=== PATIENT | female | born 1945 | race Caucasian/White ===

== ENCOUNTER 2017-12-11 08:00 | Emergency (ER) | payer MEDICARE, OTHER ==
[~2017-12-11] VITALS: Ht 162.6 cm; Wt 85.0 kg
[~2017-12-11 08:00] MED LIST: ACCUPRIL5 MG PO; ALAVERT10 MG OR; ALBUTEROL2.5 MG/31 INH; ALENDRONATE70 MG PO; ARIMIDEX1 MG PO; ATIVAN1 M1 OR; ATIVAN1 M1 PO; ATIVAN1 MG OR; ATIVAN1 MG PO; AUGMENTIN875TAB PO; CATAFLAM50 MG OR; CELEXA20 MG PO; CIPRO500 MG PO; CIPROFLOXACN500 MG PO; CYMBALTA20 MG; CYMBALTA20 MG PO; CYMBALTA60 MG PO; FLEXERIL10 MG PO; FLEXERIL5 M1 PO; FLUTICASONE50 MCG NAB; GABAPENTIN800 MG PO; LEVAQUIN500 MG PO; LEVOTHYROXIN50 MCG PO; LORAZEPAM1 MG OR; LORAZEPAM1 MG PO; LORTAB 1010 MG PO; LORTAB 5 PO; LORTAB 7.5 PO; LORTAB5 PO; MEDDOSEPAK PO; MELOXICAM15 MG PO; MICROZIDE OR; NAPROSYN500 MG OR; NAPROSYN500 MG PO; OMEPRAZOLE20 MG OR; OMEPRAZOLE20 MG PO; OMEPRAZOLE40 MG PO; PRILOSEC20 MG PO; TRIAMCINOLON0.025 % EX; VERAPAMIL HCL120 MG PO; VERAPAMIL120 M2 PO; VERAPAMIL120 MG PO; VERAPAMIL240 MG OR; ZITHROMAX500 MG PO; ZPAK PO
[2017-12-11] MEDS ORDERED: CORTISPORIN OTI10 M2 AU (08:28)
[2017-12-11] MEDS ORDERED: ZITHROMAX250 MG PO (08:28)
[2017-12-11 08:31] VITALS: BP 171/81
== END 2017-12-11 08:32 | disposition home or self-care (01) ==
LOC: ED 08:00
DX: J32.9 Chronic sinusitis, unspecified (principal); H60.92 Unspecified otitis externa, left ear; I10 Essential (primary) hypertension; F41.9 Anxiety disorder, unspecified; E78.5 Hyperlipidemia, unspecified; E03.9 Hypothyroidism, unspecified

== ENCOUNTER → 2018-06-07 | Outpatient (REF) | payer MEDICARE, OTHER ==
[~2018-06-07] MED LIST changes: +CORTISPORIN OTI10 M2 AU; +ZITHROMAX250 MG PO
== END | disposition home or self-care (01) ==
LOC: DI 08:59
DX: J20.9 Acute bronchitis, unspecified (principal)

== ENCOUNTER 2018-08-22 09:31 | Inpatient (IN) | payer MEDICARE, OTHER ==
[~2018-08-22] VITALS: Ht 165.1 cm; Wt 68.0 kg
[2018-08-22 10:07] LABS: URINE BILIRUBIN - DIPSTICK NEGATIVE (NEGATIVE); URINE BLOOD DIPSTICK SMALL (NEGATIVE); URINE COLOR YELLOW; URINE GLUCOSE - DIPSTICK NEGATIVE (NEGATIVE); URINE KETONE NEGATIVE (NEGATIVE); URINE LEUK ESTERASE NEGATIVE (NEGATIVE); URINE NITRITE - DIPSTICK NEGATIVE (Negative); URINE PROTEIN - DIPSTICK NEGATIVE (NEG-TRACE); URINE SPECIFIC GRAVITY 1.025; URINE UROBILINOGEN - DIPSTICK 0.2 E.U./dL (0.2)
[2018-08-22 10:08] LABS: URINE EPITHELIAL CELLS RARE EPI/hpf (0-FEW); URINE RBC 0-2 RBC/hpf (0-5)
[2018-08-22 10:38] LABS: HEMOGLOBIN 12.8 g/dl (12.0-16.0); IMMATURE GRANULOCYTES 0.3 % (0.0-5.0); MEAN CELL VOLUME 88.3 fL CALC (80.0-100.0); MEAN CORPUSCULAR HGB 30.5 pG CALC (26.0-32.0); MEAN CORPUSCULAR HGB CONC 34.6 g/L CALC (32.0-36.0); NEUT# 3.29 thou/uL (2.00-7.15); RED BLOOD COUNT 4.19 mill/uL (4.20-5.60); RED CELL DISTRI WIDTH 12.5 % (11.5-15.5)
[2018-08-22 11:11] LABS: ALBUMIN 4.2 g/dL (3.2-5.0); ALKALINE PHOSPHATASE 72 u/l (38-126); BILIRUBIN, TOTAL 1.3 mg/dL (0.0-1.4); BUN 16 mg/dL (8-23); BUN/CREATININE RATIO 20 (12-20 (CALC)); CARBON DIOXIDE 25 mmol/l (22-30); CREATININE 0.8 mg/dL (0.5-1.0); GFR > 60 ML/MIN (>=60 (CALC)); GFR FOR AFR.AMER. > 60 ML/MIN (>=60 (CALC)); LIPASE 203 u/l (23-300); POTASSIUM 3.6 mmol/l (3.5-5.1); TOTAL PROTEIN 7.7 g/dL (6.3-8.2)
[2018-08-22 11:12] LABS: CHLORIDE 84 mmol/l (95-108)
[2018-08-22 11:16] LABS: ANION GAP 18 (6-22 (CALC)); SGOT/AST 40 u/l (9-36); SODIUM 123 mmol/l (137-146)
[2018-08-22 11:45] VITALS: BP 127/51
[2018-08-22] MEDS ORDERED: ANASTROZOLE1 MG PO (13:38)
[2018-08-22] MEDS ORDERED: SPIRONO/HCTZ PO (13:39)
[2018-08-22] MEDS ORDERED: POTASSIUM99 MG PO (13:40)
[2018-08-22] MEDS ORDERED: ZANAFLEX2 MG PO (13:40)
[2018-08-22] MEDS ORDERED: LEVOTHYROXIN50 MCG PO (13:40)
[2018-08-22] MEDS ORDERED: LISINOPRIL20 M1 PO (13:42)
[2018-08-22] MEDS ORDERED: SYMBICORT1 AE1 IN (13:42)
[2018-08-22] MEDS ORDERED: NEURONTIN800 MG PO (13:43)
[2018-08-22] MEDS ORDERED: TENORMIN25 M1 PO (13:43)
[2018-08-22] MEDS ORDERED: ATIVAN1 M1 PO (13:44)
[2018-08-22 15:20] LABS: ANION GAP 14 (6-22 (CALC)); BUN 13 mg/dL (8-23); BUN/CREATININE RATIO 18 (12-20 (CALC)); CARBON DIOXIDE 28 mmol/l (22-30); CHLORIDE 87 mmol/l (95-108); CREATININE 0.7 mg/dL (0.5-1.0); GFR > 60 ML/MIN (>=60 (CALC)); GFR FOR AFR.AMER. > 60 ML/MIN (>=60 (CALC)); POTASSIUM 3.3 mmol/l (3.5-5.1); SODIUM 125 mmol/l (137-146)
[2018-08-22 16:09] VITALS: BP 112/72
[2018-08-22 19:08] VITALS: BP 93/66
[2018-08-23 00:09] VITALS: BP 103/67
[2018-08-23 04:13] VITALS: BP 108/74
[2018-08-23 06:06] LABS: HEMATOCRIT 33.3 % (37.0-47.0); HEMOGLOBIN 11.4 g/dl (12.0-16.0); IMMATURE GRANULOCYTES 0.2 % (0.0-5.0); MEAN CORPUSCULAR HGB 30.8 pG CALC (26.0-32.0); MEAN CORPUSCULAR HGB CONC 34.2 g/L CALC (32.0-36.0); NEUT# 1.97 thou/uL (2.00-7.15); RED BLOOD COUNT 3.7 mill/uL (4.20-5.60); RED CELL DISTRI WIDTH 12.6 % (11.5-15.5)
[2018-08-23 06:31] LABS: ALBUMIN 3.5 g/dL (3.2-5.0); ALKALINE PHOSPHATASE 65 u/l (38-126); BILIRUBIN, TOTAL 1.1 mg/dL (0.0-1.4); BUN 12 mg/dL (8-23); BUN/CREATININE RATIO 14 (12-20 (CALC)); CARBON DIOXIDE 28 mmol/l (22-30); CHLORIDE 91 mmol/l (95-108); CREATININE 0.8 mg/dL (0.5-1.0); GFR > 60 ML/MIN (>=60 (CALC)); GFR FOR AFR.AMER. > 60 ML/MIN (>=60 (CALC)); MAGNESIUM 1.6 mg/dL (1.6-2.3); SGOT/AST 21 u/l (9-36); SODIUM 129 mmol/l (137-146); TOTAL PROTEIN 6.5 g/dL (6.3-8.2)
[2018-08-23 07:00] LABS: ANION GAP 15 (6-22 (CALC)); POTASSIUM 4.5 mmol/l (3.5-5.1)
[2018-08-23 08:00] VITALS: BP 126/68
[2018-08-23 12:52] VITALS: BP 109/74
[2018-08-23 15:39] VITALS: BP 129/73
[2018-08-23 19:19] VITALS: BP 108/65
[2018-08-24 02:58] VITALS: BP 113/73
[2018-08-24 05:48] LABS: HEMATOCRIT 35.2 % (37.0-47.0); HEMOGLOBIN 11.9 g/dl (12.0-16.0); IMMATURE GRANULOCYTES 0.2 % (0.0-5.0); MEAN CELL VOLUME 90.5 fL CALC (80.0-100.0); MEAN CORPUSCULAR HGB 30.6 pG CALC (26.0-32.0); MEAN CORPUSCULAR HGB CONC 33.8 g/L CALC (32.0-36.0); NEUT# 1.9 thou/uL (2.00-7.15); RED BLOOD COUNT 3.89 mill/uL (4.20-5.60); RED CELL DISTRI WIDTH 12.5 % (11.5-15.5)
[2018-08-24 06:04] LABS: ALBUMIN 3.7 g/dL (3.2-5.0); ALKALINE PHOSPHATASE 62 u/l (38-126); ANION GAP 14 (6-22 (CALC)); BILIRUBIN, TOTAL 0.8 mg/dL (0.0-1.4); BUN 16 mg/dL (8-23); BUN/CREATININE RATIO 22 (12-20 (CALC)); CARBON DIOXIDE 28 mmol/l (22-30); CHLORIDE 94 mmol/l (95-108); CREATININE 0.7 mg/dL (0.5-1.0); GFR > 60 ML/MIN (>=60 (CALC)); GFR FOR AFR.AMER. > 60 ML/MIN (>=60 (CALC)); MAGNESIUM 1.7 mg/dL (1.6-2.3); POTASSIUM 4.3 mmol/l (3.5-5.1); SGOT/AST 20 u/l (9-36); SODIUM 131 mmol/l (137-146); TOTAL PROTEIN 6.7 g/dL (6.3-8.2)
[2018-08-24 08:00] VITALS: BP 133/69
[2018-08-24 11:26] VITALS: BP 157/92
[2018-08-24 15:51] VITALS: BP 141/94
[2018-08-24 19:47] VITALS: BP 119/78
[2018-08-25 00:54] VITALS: BP 121/85
[2018-08-25 04:51] VITALS: BP 131/85
[2018-08-25 07:05] LABS: HEMATOCRIT 36.6 % (37.0-47.0); HEMOGLOBIN 12.5 g/dl (12.0-16.0); IMMATURE GRANULOCYTES 0.2 % (0.0-5.0); MEAN CORPUSCULAR HGB 31.1 pG CALC (26.0-32.0); MEAN CORPUSCULAR HGB CONC 34.2 g/L CALC (32.0-36.0); NEUT# 2.44 thou/uL (2.00-7.15); RED BLOOD COUNT 4.02 mill/uL (4.20-5.60); RED CELL DISTRI WIDTH 12.7 % (11.5-15.5)
[2018-08-25 07:25] LABS: ALKALINE PHOSPHATASE 64 u/l (38-126); ANION GAP 15 (6-22 (CALC)); BILIRUBIN, TOTAL 1.1 mg/dL (0.0-1.4); BUN 13 mg/dL (8-23); BUN/CREATININE RATIO 22 (12-20 (CALC)); CARBON DIOXIDE 29 mmol/l (22-30); CHLORIDE 92 mmol/l (95-108); CREATININE 0.6 mg/dL (0.5-1.0); GFR > 60 ML/MIN (>=60 (CALC)); GFR FOR AFR.AMER. > 60 ML/MIN (>=60 (CALC)); MAGNESIUM 1.6 mg/dL (1.6-2.3); POTASSIUM 4.7 mmol/l (3.5-5.1); SGOT/AST 23 u/l (9-36); SODIUM 131 mmol/l (137-146); TOTAL PROTEIN 7.1 g/dL (6.3-8.2)
[2018-08-25 08:20] VITALS: BP 110/71
[2018-08-25 11:30] VITALS: BP 114/70
[2018-08-25] MEDS ORDERED: SOD CHLORIDE1 G2 PO (13:10)
== END 2018-08-25 13:54 | disposition home or self-care (01) | DRG 645 ==
LOC: ED 09:31 → ED-I 11:37 → ED 11:57 → MS2 11:58
PROVIDERS: Family Medicine; ADMIT Internal Medicine Nephrology; ATTEND Internal Medicine Nephrology
DX: E22.2 Syndrome of inappropriate secretion of antidiuretic hormone (principal); I10 Essential (primary) hypertension; E03.9 Hypothyroidism, unspecified; E78.5 Hyperlipidemia, unspecified; F41.1 Generalized anxiety disorder; I95.9 Hypotension, unspecified; T50.2X5A Adverse effect of carbonic-anhydrase inhibitors, benzothiadiazides and other diuretics, initial encounter; T50.0X5A Adverse effect of mineralocorticoids and their antagonists, initial encounter; G62.9 Polyneuropathy, unspecified; C50.911 Malignant neoplasm of unspecified site of right female breast; Z79.811 Long term (current) use of aromatase inhibitors; Z90.11 Acquired absence of right breast and nipple
CPT/HCPCS: G0378; J1650; Q9967

== ENCOUNTER 2018-10-27 11:54 | Emergency (ER) | payer MEDICARE, OTHER ==
[~2018-10-27] VITALS: Ht 165.1 cm; Wt 70.0 kg
[~2018-10-27 11:54] MED LIST changes: +ANASTROZOLE1 MG PO; +LISINOPRIL20 M1 PO; +NEURONTIN800 MG PO; +POTASSIUM99 MG PO; +SOD CHLORIDE1 G2 PO; +SPIRONO/HCTZ PO; +SYMBICORT1 AE1 IN; +TENORMIN25 M1 PO; +ZANAFLEX2 MG PO
[2018-10-27] MEDS ORDERED: ZITHROMAX250 MG PO (12:42)
[2018-10-27] MEDS ORDERED: MEDDOSEPAK PO (12:42)
[2018-10-27 12:48] VITALS: BP 145/104
== END 2018-10-27 12:54 | disposition home or self-care (01) ==
LOC: ED 11:54
DX: J06.9 Acute upper respiratory infection, unspecified (principal); J44.9 Chronic obstructive pulmonary disease, unspecified; I10 Essential (primary) hypertension; F41.9 Anxiety disorder, unspecified; E03.9 Hypothyroidism, unspecified; E78.5 Hyperlipidemia, unspecified

== ENCOUNTER 2018-11-21 15:07 | Emergency (ER) | payer MEDICARE, OTHER ==
[~2018-11-21] VITALS: Ht 165.1 cm; Wt 68.0 kg
[2018-11-21] MEDS ORDERED: LISINOPRIL20 M1 PO (16:16)
[2018-11-21] MEDS ORDERED: AUGMENTIN875TAB PO (16:33)
[2018-11-21] MEDS ORDERED: MEDDOSEPAK PO (16:33)
[2018-11-21 16:40] VITALS: BP 149/87
== END 2018-11-21 16:40 | disposition home or self-care (01) ==
LOC: ED 15:07
DX: J32.9 Chronic sinusitis, unspecified (principal); R09.81 Nasal congestion; R50.9 Fever, unspecified

== ENCOUNTER 2019-07-13 10:20 | Emergency (ER) | payer MEDICARE, OTHER ==
[~2019-07-13] VITALS: Ht 165.1 cm; Wt 70.0 kg
[2019-07-13 10:47] LABS: HEMATOCRIT 39.6 % (37.0-47.0); IMMATURE GRANULOCYTES 0.4 % (0.0-5.0); MEAN CELL VOLUME 90.8 fL CALC (80.0-100.0); MEAN CORPUSCULAR HGB 29.8 pG CALC (26.0-32.0); MEAN CORPUSCULAR HGB CONC 32.8 g/L CALC (32.0-36.0); NEUT# 4.03 thou/uL (2.00-7.15); RED BLOOD COUNT 4.36 mill/uL (4.20-5.60); RED CELL DISTRI WIDTH 13.4 % (11.5-15.5)
[2019-07-13 11:03] LABS: ALBUMIN 4.3 g/dL (3.2-5.0); ALKALINE PHOSPHATASE 115 u/l (38-126); ANION GAP 13 (6-22 (CALC)); BUN 16 mg/dL (8-23); BUN/CREATININE RATIO 21 (12-20 (CALC)); CARBON DIOXIDE 29 mmol/l (22-30); CHLORIDE 103 mmol/l (95-108); CREATININE 0.7 mg/dL (0.5-1.0); GFR > 60 ML/MIN (>=60 (CALC)); GFR FOR AFR.AMER. > 60 ML/MIN (>=60 (CALC)); LIPASE 246 u/l (23-300); POTASSIUM 3.5 mmol/l (3.5-5.1); SGOT/AST 24 u/l (9-36); SODIUM 141 mmol/l (137-146); TOTAL PROTEIN 7.8 g/dL (6.3-8.2)
[2019-07-13] MEDS ORDERED: ZPAK PO (11:21)
[2019-07-13 12:21] VITALS: BP 143/74
== END 2019-07-13 12:34 | disposition home or self-care (01) ==
LOC: ED 10:20
PROVIDERS: Family Medicine
DX: J06.9 Acute upper respiratory infection, unspecified (principal); I10 Essential (primary) hypertension; J44.9 Chronic obstructive pulmonary disease, unspecified; E03.9 Hypothyroidism, unspecified

== ENCOUNTER 2019-10-15 | Emergency (ER) | payer MEDICARE, OTHER ==
[2019-10-15] MEDS ORDERED: ATENOLOL50 MG PO (11:04)
[2019-10-15] MEDS ORDERED: ATORVASTATIN CA10 MG PO (11:05)
[2019-10-15] MEDS ORDERED: LISINOPRIL40 MG PO (11:05)
== END 2019-10-15 12:30 | disposition home or self-care (01) ==
DX: M17.11 Unilateral primary osteoarthritis, right knee (principal); I10 Essential (primary) hypertension; J44.9 Chronic obstructive pulmonary disease, unspecified; E03.9 Hypothyroidism, unspecified
CPT/HCPCS: L1830

== ENCOUNTER 2019-10-27 | Emergency (ER) | payer MEDICARE, OTHER ==
[~2019-10-27] MED LIST changes: +ATENOLOL50 MG PO; +ATORVASTATIN CA10 MG PO; +LISINOPRIL40 MG PO
[2019-10-27 06:03] LABS: HEMATOCRIT 37.7 % (37.0-47.0); HEMOGLOBIN 12.3 g/dl (12.0-16.0); IMMATURE GRANULOCYTES 0.3 % (0.0-5.0); MEAN CELL VOLUME 90.2 fL CALC (80.0-100.0); MEAN CORPUSCULAR HGB 29.4 pG CALC (26.0-32.0); MEAN CORPUSCULAR HGB CONC 32.6 g/L CALC (32.0-36.0); NEUT# 3.93 thou/uL (2.00-7.15); RED BLOOD COUNT 4.18 mill/uL (4.20-5.60); RED CELL DISTRI WIDTH 13.5 % (11.5-15.5)
[2019-10-27 06:21] LABS: ALBUMIN 3.9 g/dL (3.2-5.0); ALKALINE PHOSPHATASE 116 u/l (38-126); ANION GAP 10 (6-22 (CALC)); BILIRUBIN, TOTAL 1.3 mg/dL (0.0-1.4); BUN 14 mg/dL (8-23); BUN/CREATININE RATIO 18 (12-20 (CALC)); CARBON DIOXIDE 30 mmol/l (22-30); CHLORIDE 100 mmol/l (95-108); CREATININE 0.8 mg/dL (0.5-1.0); GFR > 60 ML/MIN (>=60 (CALC)); GFR FOR AFR.AMER. > 60 ML/MIN (>=60 (CALC)); POTASSIUM 3.5 mmol/l (3.5-5.1); SGOT/AST 27 u/l (9-36); SODIUM 137 mmol/l (137-146); TOTAL PROTEIN 7.1 g/dL (6.3-8.2)
[2019-10-27] MEDS ORDERED: PREDNISONE50 MG PO (06:44)
== END 2019-10-27 06:58 | disposition home or self-care (01) ==
PROVIDERS: Family Medicine
DX: J44.1 Chronic obstructive pulmonary disease with (acute) exacerbation (principal)

== ENCOUNTER 2019-12-28 | Emergency (ER) | payer MEDICARE, OTHER ==
[~2019-12-28] MED LIST changes: +PREDNISONE50 MG PO
[2019-12-28 09:32] LABS: HEMOGLOBIN 13.2 g/dl (12.0-16.0); IMMATURE GRANULOCYTES 0.2 % (0.0-5.0); MEAN CELL VOLUME 90.9 fL CALC (80.0-100.0); MEAN CORPUSCULAR HGB 29.3 pG CALC (26.0-32.0); MEAN CORPUSCULAR HGB CONC 32.2 g/dL CAL (32.0-36.0); NEUT# 2.65 thou/uL (2.00-7.15); RED BLOOD COUNT 4.51 mill/uL (4.20-5.60); RED CELL DISTRI WIDTH 14.4 % (11.5-15.5)
[2019-12-28] MEDS ORDERED: ALBUTEROL SUL0.083 % IN ×2 (09:34→10:24)
[2019-12-28 09:49] LABS: ALBUMIN 4.3 g/dL (3.2-5.0); ALKALINE PHOSPHATASE 110 u/l (38-126); ANION GAP 15 (6-22 (CALC)); BUN 16 mg/dL (8-23); BUN/CREATININE RATIO 25 (12-20 (CALC)); CARBON DIOXIDE 25 mmol/l (22-30); CHLORIDE 104 mmol/l (95-108); CREATININE 0.6 mg/dL (0.5-1.0); GFR > 60 ML/MIN (>=60 (CALC)); GFR FOR AFR.AMER. > 60 ML/MIN (>=60 (CALC)); POTASSIUM 3.8 mmol/l (3.5-5.1); SODIUM 140 mmol/l (137-146)
[2019-12-28 09:51] LABS: SGOT/AST 55 u/l (9-36)
[2019-12-28] MEDS ORDERED: ZPAK PO (10:24)
[2019-12-28] MEDS ORDERED: MEDDOSEPAK PO ×2 (10:24)
[2019-12-28] MEDS ORDERED: TESSALON PER100 MG PO ×2 (10:24)
--- NOTE | 2019-12-31 08:30 | NUR ---
COVID nasal swab results called to patient with confirmation of name and date of . Encouraged continued safety measures as recommended by the CDC regarding COVID including social distancing and frequent handwashing. Patient states she is feeling much better.
== END 2019-12-28 10:25 | disposition home or self-care (01) ==
DX: J44.1 Chronic obstructive pulmonary disease with (acute) exacerbation (principal); I10 Essential (primary) hypertension; E03.9 Hypothyroidism, unspecified; Z77.22 Contact with and (suspected) exposure to environmental tobacco smoke (acute) (chronic); Z20.828 Contact with and (suspected) exposure to other viral communicable diseases

== ENCOUNTER 2020-03-03 16:07 | Emergency (ER) | payer MEDICARE, OTHER ==
[~2020-03-03] VITALS: Ht 165.1 cm; Wt 68.0 kg
[~2020-03-03 16:07] MED LIST changes: +ALBUTEROL SUL0.083 % IN; +TESSALON PER100 MG PO
[2020-03-03 17:22] VITALS: BP 138/90
== END 2020-03-03 17:24 | disposition home or self-care (01) ==
LOC: ED 16:07
DX: M25.571 Pain in right ankle and joints of right foot (principal); M19.071 Primary osteoarthritis, right ankle and foot; I10 Essential (primary) hypertension; J44.9 Chronic obstructive pulmonary disease, unspecified; X50.0XXA Overexertion from strenuous movement or load, initial encounter; Y92.009 Unspecified place in unspecified non-institutional (private) residence as the place of occurrence of the external cause

== ENCOUNTER 2020-08-16 15:32 | Emergency (ER) | payer MEDICARE, OTHER ==
[~2020-08-16] VITALS: Ht 165.1 cm; Wt 47.7 kg
[2020-08-16] MEDS ORDERED: Levaquin PO (16:13)
[2020-08-16] MEDS ORDERED: MEDDOSEPAK PO (16:13)
[2020-08-16 16:18] VITALS: BP 144/88
== END 2020-08-16 16:38 | disposition home or self-care (01) ==
LOC: ED 15:32
DX: J32.9 Chronic sinusitis, unspecified (principal); I10 Essential (primary) hypertension; J44.9 Chronic obstructive pulmonary disease, unspecified; E03.9 Hypothyroidism, unspecified; F41.9 Anxiety disorder, unspecified; E78.5 Hyperlipidemia, unspecified; G62.9 Polyneuropathy, unspecified

== ENCOUNTER 2021-01-24 17:59 | Emergency (ER) | payer MEDICARE, OTHER ==
[~2021-01-24] VITALS: Ht 165.1 cm; Wt 65.9 kg
[~2021-01-24 17:59] MED LIST changes: +Levaquin PO
[2021-01-24 18:34] LABS: URINE BILIRUBIN - DIPSTICK NEGATIVE (NEGATIVE); URINE BLOOD DIPSTICK TRACE-LYSED (NEGATIVE); URINE CLARITY CLEAR; URINE COLOR YELLOW; URINE GLUCOSE - DIPSTICK NEGATIVE (NEGATIVE); URINE KETONE NEGATIVE (NEGATIVE); URINE LEUK ESTERASE TRACE (Negative); URINE NITRITE - DIPSTICK NEGATIVE (Negative); URINE PROTEIN - DIPSTICK NEGATIVE (NEG-TRACE); URINE SPECIFIC GRAVITY 1.015; URINE UROBILINOGEN - DIPSTICK 0.2 E.U./dL (0.2)
[2021-01-24 18:50] LABS: HEMATOCRIT 37.8 % (37.0-47.0); HEMOGLOBIN 12.2 g/dl (12.0-16.0); IMMATURE GRANULOCYTES 0.2 % (0.0-5.0); MEAN CELL VOLUME 90.4 fL CALC (80.0-100.0); MEAN CORPUSCULAR HGB 29.2 pG CALC (26.0-32.0); MEAN CORPUSCULAR HGB CONC 32.3 g/dL CAL (32.0-36.0); NEUT# 2.38 thou/uL (2.00-7.15); RED BLOOD COUNT 4.18 mill/uL (4.20-5.60); RED CELL DISTRI WIDTH 13.8 % (11.5-15.5)
[2021-01-24 19:02] LABS: ALBUMIN 3.9 g/dL (3.2-5.0); ALKALINE PHOSPHATASE 90 u/l (38-126); ANION GAP 10 (6-22 (CALC)); BILIRUBIN, TOTAL 1.2 mg/dL (0.0-1.4); BUN 13 mg/dL (8-23); BUN/CREATININE RATIO 17 (12-20 (CALC)); CARBON DIOXIDE 28 mmol/l (22-30); CHLORIDE 101 mmol/l (95-108); CREATININE 0.8 mg/dL (0.5-1.0); GFR > 60 ML/MIN (>=60 (CALC)); GFR FOR AFR.AMER. > 60 ML/MIN (>=60 (CALC)); LIPASE 193 u/l (23-300); POTASSIUM 3.6 mmol/l (3.5-5.1); SGOT/AST 27 u/l (9-36); SODIUM 135 mmol/l (137-146); TOTAL PROTEIN 7.1 g/dL (6.3-8.2)
[2021-01-24] MEDS ORDERED: KEFLEX500 MG PO (20:14)
[2021-01-24 20:41] VITALS: BP 158/72
== END 2021-01-24 20:25 | disposition home or self-care (01) ==
LOC: ED 17:59
DX: N39.0 Urinary tract infection, site not specified (principal); I10 Essential (primary) hypertension; J44.9 Chronic obstructive pulmonary disease, unspecified; E03.9 Hypothyroidism, unspecified; F41.9 Anxiety disorder, unspecified; E78.5 Hyperlipidemia, unspecified; G62.9 Polyneuropathy, unspecified; I20.9 Angina pectoris, unspecified

== ENCOUNTER 2021-01-27 02:25 | Emergency (ER) | payer MEDICARE, OTHER ==
[~2021-01-27] VITALS: Ht 165.1 cm; Wt 63.0 kg
[~2021-01-27 02:25] MED LIST changes: +KEFLEX500 MG PO
[2021-01-27 04:32] LABS: ALBUMIN 3.6 g/dL (3.2-5.0); ALKALINE PHOSPHATASE 77 u/l (38-126); ANION GAP 8 (6-22 (CALC)); BUN 8 mg/dL (8-23); BUN/CREATININE RATIO 12 (12-20 (CALC)); CARBON DIOXIDE 28 mmol/l (22-30); CHLORIDE 100 mmol/l (95-108); CREATININE 0.7 mg/dL (0.5-1.0); GFR > 60 ML/MIN (>=60 (CALC)); GFR FOR AFR.AMER. > 60 ML/MIN (>=60 (CALC)); LIPASE 134 u/l (23-300); POTASSIUM 3.3 mmol/l (3.5-5.1); SGOT/AST 28 u/l (9-36); SODIUM 133 mmol/l (137-146); TOTAL PROTEIN 6.6 g/dL (6.3-8.2)
[2021-01-27 05:16] LABS: HEMATOCRIT 38.6 % (37.0-47.0); HEMOGLOBIN 12.6 g/dl (12.0-16.0); IMMATURE GRANULOCYTES 0.2 % (0.0-5.0); MEAN CELL VOLUME 90.2 fL CALC (80.0-100.0); MEAN CORPUSCULAR HGB 29.4 pG CALC (26.0-32.0); MEAN CORPUSCULAR HGB CONC 32.6 g/dL CAL (32.0-36.0); NEUT# 2.02 thou/uL (2.00-7.15); RED BLOOD COUNT 4.28 mill/uL (4.20-5.60); RED CELL DISTRI WIDTH 13.7 % (11.5-15.5)
[2021-01-27 05:30] LABS: ETHYL ALCOHOL 0 mg/dl (0-30)
[2021-01-27 06:11] LABS: URINE BILIRUBIN - DIPSTICK NEGATIVE (NEGATIVE); URINE BLOOD DIPSTICK TRACE-LYSED (NEGATIVE); URINE COLOR YELLOW; URINE GLUCOSE - DIPSTICK NEGATIVE (NEGATIVE); URINE KETONE NEGATIVE (NEGATIVE); URINE PH 6.5 (4.5-8.0); URINE UROBILINOGEN - DIPSTICK 0.2 E.U./dL (0.2)
[2021-01-27 06:13] LABS: URINE LEUK ESTERASE SMALL (NEGATIVE); URINE NITRITE - DIPSTICK POSITIVE (Negative)
[2021-01-27 06:15] LABS: URINE PROTEIN - DIPSTICK NEGATIVE (NEG-TRACE)
[2021-01-27 06:19] LABS: URINE BACTERIA MODERATE hpf; URINE EPITHELIAL CELLS FEW EPI/hpf (0-FEW)
[2021-01-27] MEDS ORDERED: ZOFRAN4 MG/TAB PO (06:26)
[2021-01-27] MEDS ORDERED: CIPROFLOXACN500 MG PO (06:26)
[2021-01-27] MEDS ORDERED: TORADOL PO (06:26)
[2021-01-27 06:39] VITALS: BP 154/85
== END 2021-01-27 07:18 | disposition home or self-care (01) ==
LOC: ED 02:25
DX: N39.0 Urinary tract infection, site not specified (principal); M54.5 Low back pain; I10 Essential (primary) hypertension; J44.9 Chronic obstructive pulmonary disease, unspecified; F41.9 Anxiety disorder, unspecified; E03.9 Hypothyroidism, unspecified; E78.5 Hyperlipidemia, unspecified; G62.9 Polyneuropathy, unspecified; I20.9 Angina pectoris, unspecified; Z20.822 Contact with and (suspected) exposure to COVID-19

== ENCOUNTER 2021-08-21 03:54 | Emergency (ER) | payer MEDICARE, OTHER ==
[~2021-08-21] VITALS: Ht 165.1 cm; Wt 68.0 kg
[~2021-08-21 03:54] MED LIST changes: +TORADOL PO; +ZOFRAN4 MG/TAB PO
[2021-08-21] MEDS ORDERED: FLONASE AL50 MCG/ACT (05:06)
[2021-08-21] MEDS ORDERED: KEFLEX500 MG PO (05:06)
[2021-08-21 05:09] VITALS: BP 113/65
== END 2021-08-21 05:29 | disposition home or self-care (01) ==
LOC: ED 03:54
DX: J32.9 Chronic sinusitis, unspecified (principal); I10 Essential (primary) hypertension; J44.9 Chronic obstructive pulmonary disease, unspecified; F41.9 Anxiety disorder, unspecified; E03.9 Hypothyroidism, unspecified; E78.5 Hyperlipidemia, unspecified; Z20.822 Contact with and (suspected) exposure to COVID-19

== ENCOUNTER 2021-11-23 05:43 | Inpatient (IN) | payer MEDICARE, OTHER ==
[~2021-11-23] VITALS: Ht 165.1 cm; Wt 64.8 kg
[2021-11-23] VITALS (8 sets, daily range): BP systolic 119–169; BP diastolic 55–101
[~2021-11-23 05:43] MED LIST changes: +FLONASE AL50 MCG/ACT; +TRAZODONE50 MG PO; +VENLAFAXINE37.5 MG PO; +ZESTRIL40 MG PO; +ZOCOR10 MG PO
--- NOTE | 2021-11-23 16:00 | NUR ---
PT RESTING COMFORTABLY IN BED, NO S/S OF DISCOMFORT
--- NOTE | 2021-11-23 19:07 | NUR ---
REPORT RECEIVED FROM Bailee MOSQUERA RN
[2021-11-24 04:38] VITALS: BP 96/42
--- NOTE | 2021-11-24 04:53 | NUR ---
pt provided with pain medication for pain 12/06.
[2021-11-24 05:30] LABS: HEMATOCRIT 41.4 % (37.0-47.0); HEMOGLOBIN 12.6 g/dl (12.0-16.0)
--- NOTE | 2021-11-24 06:24 | NUR ---
PATIENT RESTING COMOFORTABLY, DENIES ANY CURRENT PAIN AT THIS TIME. CALL LIGHT AND BEDSIDE TABLE WITHIN REACH.
--- NOTE | 2021-11-24 07:27 | NUR ---
RECD REPORT FROM NIGHT NURSE, PT RESTING COMFORTABLY IN BED, NO COMPLAING OF DISCOMFORT OR DISTRESS. ASKED FOR COFFEE
[2021-11-24 07:41] VITALS: BP 96/57
--- NOTE | 2021-11-24 12:00 | NUR ---
PT RESTING IN BED TALKING ON PHONE, NO COMPLAINTS OF PAIN AT THIS TIME
--- NOTE | 2021-11-24 12:18 | NUR ---
Pt seen this for treatment. She was resting in bed. AROM ex performed to BLE in supine including heel slides, hip abd/add, TKE, isometric quad and gluts, sitting LAQ, ankle DF/PF 2 x10 reps with 5 sec hold for isometrics. Knee AROM -10 to 85 degrees. Bed mobility with verbal cues and no use of bed rail, modified indep. supine to sit with supervision. Tranfer to chair with CGA. Gait with RW 2 x 30' with CGA and verbal cue for proper gait pattern. BP 118/62, HR 76, 02sats 95%. Pt was left in chair with call ng/phone and tray in reach. A- Pt able to move with less assist today and increase knee flexion. [facility] 13 home with home health P- Will continue to follow per POC.
== END 2021-11-24 13:58 | disposition home health service (06) | DRG 470 ==
LOC: ORM 05:43 → MS2 11:04
PROVIDERS: ADMIT Orthopaedic Surgery; ATTEND Orthopaedic Surgery
PROC: 0SRC0J9 Replacement of Right Knee Joint with Synthetic Substitute, Cemented, Open Approach (ICD-10-PCS; principal; 2021-11-23)
PROC: 3E0T3BZ Introduction of Anesthetic Agent into Peripheral Nerves and Plexi, Percutaneous Approach (ICD-10-PCS; 2021-11-23)
DX: M17.11 Unilateral primary osteoarthritis, right knee (principal); I10 Essential (primary) hypertension; J44.9 Chronic obstructive pulmonary disease, unspecified; E03.9 Hypothyroidism, unspecified; F41.9 Anxiety disorder, unspecified; F32.A Depression, unspecified; Z85.3 Personal history of malignant neoplasm of breast; Z90.11 Acquired absence of right breast and nipple; Z01.818 Encounter for other preprocedural examination; Z11.59 Encounter for screening for other viral diseases; F41.1 Generalized anxiety disorder; E78.00 Pure hypercholesterolemia, unspecified; Z98.890 Other specified postprocedural states
CPT/HCPCS: J0131

== ENCOUNTER 2022-01-10 10:24 | Emergency (ER) | payer MEDICARE, OTHER ==
[~2022-01-10] VITALS: Ht 165.1 cm; Wt 65.9 kg
[2022-01-10 11:32] VITALS: BP 166/107
[2022-01-10 11:52] VITALS: BP 160/94
[2022-01-10 12:00] VITALS: BP 158/88
[2022-01-10 12:30] VITALS: BP 158/91
[2022-01-10 13:00] VITALS: BP 168/86
[2022-01-10] MEDS ORDERED: IBUPROFEN600 MG PO (13:03)
[2022-01-10 13:08] VITALS: BP 168/86
== END 2022-01-10 13:20 | disposition home or self-care (01) ==
LOC: ED 10:24
DX: M25.561 Pain in right knee (principal); I10 Essential (primary) hypertension; F32.A Depression, unspecified; F41.9 Anxiety disorder, unspecified; Z96.651 Presence of right artificial knee joint

== ENCOUNTER 2022-01-18 06:04 | Day surgery (SDC) | payer MEDICARE, OTHER ==
[~2022-01-18] VITALS: Ht 165.1 cm; Wt 62.6 kg
[~2022-01-18 06:04] MED LIST changes: +IBUPROFEN600 MG PO
[2022-01-18 08:49] VITALS: BP 150/88
== END 2022-01-18 08:41 | disposition home or self-care (01) ==
LOC: ORM 06:04
PROVIDERS: ATTEND Orthopaedic Surgery
PROC: 0SNCXZZ Release Right Knee Joint, External Approach (ICD-10-PCS; principal; 2022-01-18)
DX: T84.82XA Fibrosis due to internal orthopedic prosthetic devices, implants and grafts, initial encounter (principal); Y83.1 Surgical operation with implant of artificial internal device as the cause of abnormal reaction of the patient, or of later complication, without mention of misadventure at the time of the procedure; Z96.651 Presence of right artificial knee joint

== ENCOUNTER 2024-08-13 08:33 | Emergency (ER) | payer MEDICARE ==
[2024-08-13] VITALS (13 sets, daily range): BP systolic 145–194; BP diastolic 88–114
[~2024-08-13] VITALS: Ht 165.1 cm; Wt 67.2 kg
[~2024-08-13 08:33] MED LIST changes: +IPRATROPIU0.5 MG/3 M IN; +K-TAB20 MEQ PO
[2024-08-13 09:18] LABS: BASO% 1.2 % (0-3); HEMOGLOBIN 13.9 g/dl (12.0-16.0); IMMATURE GRANULOCYTES 0.2 % (0.0-5.0); LYMPH% 46.4 % (15-41); MEAN CELL VOLUME 95.7 fL CALC (80.0-100.0); MEAN CORPUSCULAR HGB 29.7 pG CALC (26.0-32.0); MONO% 6.4 % (2-13); NEUT# 2.29 thou/uL (2.00-7.15); NEUT% 40.8 % (42-76); RED BLOOD COUNT 4.68 mill/uL (4.20-5.60)
[2024-08-13 09:20] LABS: HEMATOCRIT 44.8 % (37.0-47.0)
[2024-08-13 09:27] LABS: ALBUMIN 4.4 g/dL (3.2-5.0); ALKALINE PHOSPHATASE 104 u/l (38-126); ANION GAP 11 (6-22 (CALC)); BUN 13 mg/dL (8-23); BUN/CREATININE RATIO 17 (12-20 (CALC)); CARBON DIOXIDE 30 mmol/l (22-30); CHLORIDE 101 mmol/l (95-108); CREATININE 0.8 mg/dL (0.5-1.0); ESTIMATED GFR 76 ML/MIN (>=90 (CALC)); POTASSIUM 3.3 mmol/l (3.5-5.1); SGOT/AST 32 u/l (9-36); SODIUM 139 mmol/l (137-146)
[2024-08-13 09:42] LABS: BILIRUBIN, TOTAL 0.9 mg/dL (0.02-1.3)
[2024-08-13] MEDS ORDERED: LIPITOR40 M1 PO (12:22)
[2024-08-13] MEDS ORDERED: HYDROCHLOROT12.5 M1 PO (12:30)
== END 2024-08-13 12:54 | disposition home or self-care (01) ==
LOC: ED 08:33
PROVIDERS: Family Medicine
DX: G45.9 Transient cerebral ischemic attack, unspecified (principal); I10 Essential (primary) hypertension; F32.A Depression, unspecified; F41.9 Anxiety disorder, unspecified
CPT/HCPCS: Q9967

== ENCOUNTER 2024-09-10 14:48 | Emergency (ER) | payer MEDICARE ==
[~2024-09-10] VITALS: Ht 165.1 cm; Wt 66.8 kg
[~2024-09-10 14:48] MED LIST changes: +HYDROCHLOROT12.5 M1 PO; +LIPITOR40 M1 PO
[2024-09-10 14:56] VITALS: BP 129/77
== END 2024-09-10 19:28 | disposition left against medical advice (07) ==
LOC: ED 14:48 → LWOBS 19:28
DX: Z53.21 Procedure and treatment not carried out due to patient leaving prior to being seen by health care provider (principal)

== ENCOUNTER 2024-09-20 16:00 | Emergency (ER) | payer MEDICARE ==
[2024-09-20] VITALS (9 sets, daily range): BP systolic 140–170; BP diastolic 84–108
[~2024-09-20] VITALS: Ht 165.1 cm; Wt 62.0 kg
[2024-09-20 17:10] LABS: BASO% 0.9 % (0-3); EOS% 5.3 % (0-8); HEMATOCRIT 38.3 % (37.0-47.0); HEMOGLOBIN 12.4 g/dl (12.0-16.0); IMMATURE GRANULOCYTES 0.1 % (0.0-5.0); LYMPH% 46.8 % (15-41); MEAN CORPUSCULAR HGB 30.5 pG CALC (26.0-32.0); MEAN CORPUSCULAR HGB CONC 32.4 g/dL CAL (32.0-36.0); MONO% 8.5 % (2-13); NEUT# 2.6 thou/uL (2.00-7.15); NEUT% 38.4 % (42-76); RED BLOOD COUNT 4.07 mill/uL (4.20-5.60); RED CELL DISTRI WIDTH 13.4 % (11.5-15.5)
[2024-09-20 17:12] LABS: MEAN CELL VOLUME 94.1 fL CALC (80.0-100.0)
[2024-09-20 17:22] LABS: ALBUMIN 4.1 g/dL (3.2-5.0); ALKALINE PHOSPHATASE 102 u/l (38-126); ANION GAP 11 (6-22 (CALC)); BUN 11 mg/dL (8-23); BUN/CREATININE RATIO 16 (12-20 (CALC)); CARBON DIOXIDE 32 mmol/l (22-30); CHLORIDE 97 mmol/l (95-108); CREATININE 0.7 mg/dL (0.5-1.0); ESTIMATED GFR 89 ML/MIN (>=90 (CALC)); POTASSIUM 3.4 mmol/l (3.5-5.1); SGOT/AST 38 u/l (9-36); TOTAL PROTEIN 7.5 g/dL (6.3-8.2)
[2024-09-20 17:24] LABS: SODIUM 137 mmol/l (137-146)
[2024-09-20] MEDS ORDERED: cloNIDine HCL 0.1 MG/TAB PO ONE (17:55)
[2024-09-20] MEDS ORDERED: methylPREDNISolone SODIUM SUCC 125 MG/2 ML SDV IV ONE (18:00)
[2024-09-20] MEDS ORDERED: DOXYCYCLINE HYCLATE 100 MG/CAP PO ONE (18:30)
[2024-09-20 18:39] LABS: URINE BILIRUBIN - DIPSTICK Negative (NEGATIVE); URINE BLOOD DIPSTICK Trace-intact (NEGATIVE); URINE COLOR Yellow; URINE GLUCOSE - DIPSTICK Negative (NEGATIVE); URINE KETONE Negative (NEGATIVE); URINE LEUK ESTERASE Negative (NEGATIVE); URINE NITRITE - DIPSTICK Negative (Negative); URINE PROTEIN - DIPSTICK Negative (NEG-TRACE); URINE SPECIFIC GRAVITY 1.015; URINE UROBILINOGEN - DIPSTICK 0.2 E.U./dL (0.2)
[2024-09-20] MEDS ORDERED: PREDNISONE20 MG PO (18:47)
[2024-09-20] MEDS ORDERED: VIBRAMYCIN100 M2 PO (18:47)
[2024-09-20] MEDS ORDERED: CLONIDINE0.1 MG PO (18:47)
== END 2024-09-20 19:18 | disposition home or self-care (01) ==
LOC: ED 16:00
PROVIDERS: Nurse Practitioner
DX: I10 Essential (primary) hypertension (principal); J44.1 Chronic obstructive pulmonary disease with (acute) exacerbation; J18.9 Pneumonia, unspecified organism; J44.0 Chronic obstructive pulmonary disease with (acute) lower respiratory infection; Z20.822 Contact with and (suspected) exposure to COVID-19

== ENCOUNTER 2024-09-28 13:23 | Emergency (ER) | payer MEDICARE ==
[~2024-09-28] VITALS: Ht 165.1 cm; Wt 63.6 kg
[2024-09-28] VITALS (8 sets, daily range): BP systolic 114–138; BP diastolic 62–84
[~2024-09-28 13:23] MED LIST changes: +CLONIDINE0.1 MG PO; +PREDNISONE20 MG PO; +VIBRAMYCIN100 M2 PO
[2024-09-28 14:24] LABS: BASO% 0.5 % (0-3); EOS% 2.2 % (0-8); HEMATOCRIT 41.1 % (37.0-47.0); HEMOGLOBIN 13.6 g/dl (12.0-16.0); IMMATURE GRANULOCYTES 0.7 % (0.0-5.0); LYMPH% 37.6 % (15-41); MEAN CELL VOLUME 91.5 fL CALC (80.0-100.0); MEAN CORPUSCULAR HGB 30.3 pG CALC (26.0-32.0); MEAN CORPUSCULAR HGB CONC 33.1 g/dL CAL (32.0-36.0); MONO% 7.9 % (2-13); NEUT# 4.38 thou/uL (2.00-7.15); NEUT% 51.1 % (42-76); RED BLOOD COUNT 4.49 mill/uL (4.20-5.60); RED CELL DISTRI WIDTH 13.7 % (11.5-15.5)
[2024-09-28 14:34] LABS: ALKALINE PHOSPHATASE 92 u/l (38-126); ANION GAP 13 (6-22 (CALC)); BUN 13 mg/dL (8-23); BUN/CREATININE RATIO 16 (12-20 (CALC)); CARBON DIOXIDE 29 mmol/l (22-30); CHLORIDE 96 mmol/l (95-108); CREATININE 0.8 mg/dL (0.5-1.0); ESTIMATED GFR 76 ML/MIN (>=90 (CALC)); POTASSIUM 3.7 mmol/l (3.5-5.1); SGOT/AST 37 u/l (9-36); SODIUM 134 mmol/l (137-146); TOTAL PROTEIN 7.1 g/dL (6.3-8.2)
[2024-09-28 14:37] LABS: BILIRUBIN, TOTAL 1.5 mg/dL (0.02-1.3)
[2024-09-28 15:00] LABS: URINE BILIRUBIN - DIPSTICK Negative (NEGATIVE); URINE BLOOD DIPSTICK Trace-lysed (NEGATIVE); URINE GLUCOSE - DIPSTICK Negative (NEGATIVE); URINE KETONE Negative (NEGATIVE); URINE LEUK ESTERASE Negative (NEGATIVE); URINE NITRITE - DIPSTICK Negative (Negative); URINE PROTEIN - DIPSTICK Negative (NEG-TRACE); URINE SPECIFIC GRAVITY 1.015; URINE UROBILINOGEN - DIPSTICK 0.2 E.U./dL (0.2)
[2024-09-28 15:02] LABS: URINE COLOR Yellow
[2024-09-28] MEDS ORDERED: APRESOLINE50 MG PO (15:23)
== END 2024-09-28 16:04 | disposition home or self-care (01) ==
LOC: ED 13:23
PROVIDERS: Nurse Practitioner
DX: R53.1 Weakness (principal); I10 Essential (primary) hypertension; F32.A Depression, unspecified; F41.9 Anxiety disorder, unspecified